=== PATIENT | male | born 1960 | race Caucasian/White ===

== ENCOUNTER → 2020-05-05 10:25 | Outpatient (BNVA) | payer OTHER, SELFPAY | PROVIDERS: Visit Provider Specialist | DX: G20 Parkinson's disease (principal); Z87.891 Personal history of nicotine dependence | CPT/HCPCS: 99204 ==

== ENCOUNTER → 2020-10-28 10:57 | Outpatient (BNVA) | payer OTHER, SELFPAY | PROVIDERS: Visit Provider Specialist | DX: G20 Parkinson's disease (principal); Z87.891 Personal history of nicotine dependence | CPT/HCPCS: 99215 ==

== ENCOUNTER → 2020-12-25 10:42 | Outpatient (BNVA) | payer OTHER, SELFPAY | PROVIDERS: Visit Provider Specialist | DX: G20 Parkinson's disease (principal); Z87.891 Personal history of nicotine dependence | CPT/HCPCS: 99214 ==

== ENCOUNTER → 2021-02-02 16:29 | Outpatient (BNVA) | payer OTHER, SELFPAY | PROVIDERS: Visit Provider Family Medicine | DX: L03.90 Cellulitis, unspecified (principal); S30.860A Insect bite (nonvenomous) of lower back and pelvis, initial encounter; W57.XXXA Bitten or stung by nonvenomous insect and other nonvenomous arthropods, initial encounter | CPT/HCPCS: 86618; 86666; 86757 ==

== ENCOUNTER 2021-08-31 09:05 | Day surgery (SDC) | payer OTHER, SELFPAY ==
[2021-08-28 15:12] VITALS: BMI 26.4
[2021-08-31] VITALS (11 sets, daily range): BP systolic 118–134; BP diastolic 55–78; PULSE 57–90; RESP 14–20; TEMP 36.2–36.7; O2SAT 96–100
[2021-08-31] MEDS: sodium chloride 0.9% 1,000 ML 30 ML IV (09:53)
[2021-08-31] MEDS: acetaminophen 1,000 MG/100 ML PIGGYBACK 400 MG IV (09:53)
--- NOTE | 2021-08-31 09:53 | W.PM.OPSUD ---
Surgery/Procedure H&P Update DATE OF PROCEDURE: August 31, 2021 DATE H&P PERFORMED: 08/27/21 H&P UPDATE INFORMATION: I have reviewed H&P completed within last 30 days, I have examined patient prior to procedure and No changes to prior documentation PREOP DIAGNOSIS: Right groin hernia PRIMARY INDICATION FOR PROCEDURE: The same PLANNED PROCEDURE: Operation Date: 08/31/21 11:10 Proposed Procedures p Lap possible open right inguinal hernia repair with mesh 11824/K40.90(Right) - Luis Chow MD
--- NOTE | 2021-08-31 10:15 | ANES.PREANE2 ---
Pre-Anesthetic Assessment Height/Weight: Height 1.8 m Weight 86.183 kg Temp Pulse Resp BP Pulse Ox 98.0 F 90 20 H 134/76 100 08/31/21 09:25 08/31/21 09:25 08/31/21 09:25 08/31/21 09:25 08/31/21 09:25 Preop Diagnosis: Right groin hernia Operation Date: 08/31/21 11:10 Proposed Procedures p Lap possible open right inguinal hernia repair with mesh 39734/K40.90(Right) - Luis Chow MD Familial anesthetic complications: None Was Beta Padmini taken within 24 hours: N/A Was Clonidine taken within 24 hours: N/A Last intake: Intake Last Liquid Date 08/31/21 Last Liquid Time 06:30 Last Solid Date 08/30/21 Last Solid Time 23:30 Social No alcohol and No tobacco Exam alert, oriented x 3, clear to auscultation bilaterally and regular rate & rhythm Airway Mallampati: Class II Dentition: full Pulmonary None reported CV/HEM None reported None reported Hepatic None reported GI None reported Metabolic None reported Musc/skel None reported Neuropsych None reported parkinson's disease Anesthetic Plan ASA status: 2 Anesthesia: General Medications/Allergies Home Medications Medication Instructions Recorded Confirmed Last Taken Type amino acids (Amino Acid) cap PO PRN 04/30/20 08/29/21 Unknown History multivitamin (Daily Multi-Vitamin) 1 tab PO DAILY 04/30/20 08/29/21 08/28/21 History carbidopa 25 mg-levodopa 250 mg See Rx Instructions .ROUTE 04/24/21 08/29/21 08/31/21 Rx tablet .COMPLEX #270 tab carbidopa ER 50 mg-levodopa 200 mg See Rx Instructions .ROUTE 04/24/21 08/29/21 08/30/21 Rx tablet,extended release .COMPLEX #90 tab Allergies Allergy/AdvReac Type Severity Reaction Status Date / Time formaldehyde Allergy hives Verified 08/29/21 10:04 Current Medications Generic Name Dose Route Start Last Admin Trade Name Freq PRN Reason Stop Dose Admin Sodium Chloride 1,000 mls @ 30 mls/hr 08/31/21 09:30 08/31/21 09:53 Sodium Chloride 0.9% IV 09/01/21 09:29 30 mls/hr .Q24H TEMITOPE Administration PFSH Anesthesia Medical History Parkinson disease Social History Smoking and tobacco status: former smoker Quit status (tobacco): has quit using tobacco Year quit tobacco: 1995 Alcohol intake: never Data Anesthesia Cardiac Studies: No Data to Display
--- NOTE | 2021-08-31 13:08 | PM.OP ---
Operative Report Date of procedure: August 31, 2021 Pre-op diagnosis: Preop Diagnosis Right groin hernia Post-op diagnosis: The same and lipoma of the cord Post-op findings: Right indirect inguinal hernia Procedure done: Laparoscopic right inguinal hernia repair with 3D mesh placed Laparoscopic excision of right cord lipoma Implants: Large 3D mesh Specimens removed/disposition: Lipoma of the cord Surgeon: Luis Chow MD Clinical Statistics Manager: Surgical techkristy Durant Circulating nurse Harriett Anesthesia: General ([employer] DIRECTOR OF NEUROLOGY Page) Estimated blood loss (mL): 20 IV fluids (mL): 800 Urine output (mL): 300 Procedure: Transabdominal preperitoneal (UBALDO) approach. Patient was identified in the holding area ,patient was transferred to the operating room where he was placed in supine position, with both arms were tucked, antibiotic was given with induction, endotracheal tube was placed per anesthesia, Silverio catheter was inserted by the circulating nurse and revealed clear urine, prep and drape of the abdomen was done under the usual sterile technique as well as the scrotal area. Time-out was done verifying the patient's name/date of /planned procedure destination after the procedure, all were in agreement. SCDs confirmed to be functioning, preoperative antibiotics administered per protocol, and beta rashawn protocol was confirmed. A vertical skin incision of 1.2 cm was made with 11 blade knife through the supra umbilicus , incision was carried down to the subcutaneous tissue and deepened to identify the anterior fascia, two stay sutures were applied to the fascia, and safe entrance to the abdominal cavity was achieved, a Bates trocar technique safe entry to the abdominal cavity was achieved verified by using 10 mm zero degree laparoscopy, switched to a 30 degrees scope,low flow followed by a higher flow of CO2 gas up to 15 mmHg. There was no evidence of injury to intra-abdominal structures from the port entry, attention was deviated to both groins, there was a large indirect hernia defect with herniation of peritoneum and preperitoneal fat was noted on the right side, two 5 mm ports were placed on the right and left lateral aspect of the abdomen slightly above the level of the umbilicus, under direct visualization,Exparel was injected at all trocar sites prior to incisions. The peritoneum above the level of the iliopubic tract was incised to the left of the midline and dissection was performed to create a preperitoneal space medial to lateral aspect up to anterior superior iliac spine on the right side. Dissection was continued onto the medial aspect and the right spermatic was identified, there was evidence of indirect inguinal hernia .the sac was dissected. As it applied medial to the right inferior epigastric vessels/ dissection was performed to clear the space lateral to the spermatic cord and dorsomedial to it, the hernia sac was reduced and retracted far back, so there was an evidence of lipoma of the cord that was excised and sent for permanent pathology. Hemostasis was secured and 5 mm surgical clips were applied. Then a large right 3-D mesh was rolled and placed into the abdominal cavity through the Bates port, after the mesh was introduced it was positioned to lie in the myopectineal orifice and the mesh was unrolled and this covered the entire my myope pectineal orifice. Intra-abdominal pressure was dropped to 12 mmHg to help placement of the mesh good position On the lateral aspect of the mesh extended up to the anterior superior iliac spine on the medial aspect the mesh crossed the midline onto the left side, then using absorbable tacks, placed above the iliopubic tract onto the rectus abdominis muscle on the medial aspect and also to the lateral abdominal wall superomedial to the sacroiliac spine, then the mesh was also anchored to the pubis and the Dean's ligament inferiorly. The peritoneal leaflets were then brought together to cover the mesh and isolated from the other viscera, extra tacks were used to secure the peritoneum in good position. Final look demonstrated good hemostasis and the mesh in good position A total of 20 mL Exparel 40 ml Normal saline 20 ml bupivacaine 0.25% were injected at the remaining of the tacks site and trocar sites as well Final look demonstrated good hemostasis.Then the fascia on the supra umbilical fascial defect was closed using #1 PDS sutures under direct visualization using fascial closure device Ralph Freedman.All ports were removed,then the abdomen was desufflated. All skin incisions were closed with 4-0 Monocryl subcuticular suture and Dermabond was applied. The patient tolerated the procedure well, Silverio catheter was taken out ,got extubated and was transferred to the recovery area in stable condition All counts of instruments, needles and sponges were completed I was present for the whole entire procedure
--- NOTE | 2021-08-31 13:38 | ANE.PACU2 ---
Inpatient post-anesthesia follow up: Airway intact: Yes Vital signs: Temperature 98.0 F Pulse Rate 90 Respiratory Rate 20 Blood Pressure 134/76 Pulse Oximetry 100 Oxygen Delivery Me thod Room Air Oxygen Flow Rate Fraction of Inspir ed Oxygen Hydration adequate: Yes Nausea and vomiting: No Pain level: 4 Mental status: Baseline
[2021-08-31] MEDS: fentaNYL 50 mcg/mL INJ 2mL IVP (13:45)
[2021-08-31] MEDS: HYDROcodone-acetaminophen 5-325 mg Tablet 1 TAB PO (14:32)
== END 2021-08-31 15:00 | disposition home or self-care (01) ==
PROVIDERS: PCP Family Medicine; Visit Provider Surgery
PROC: 0WQF4ZZ Repair Abdominal Wall, Percutaneous Endoscopic Approach (ICD-10-PCS; CPT 49650; principal; 2021-08-31 11:00)
DX: K40.91 Unilateral inguinal hernia, without obstruction or gangrene, recurrent (principal); D17.6 Benign lipomatous neoplasm of spermatic cord; G20 Parkinson's disease; Z87.891 Personal history of nicotine dependence
CPT/HCPCS: 49650; 51702; 88304; C1781; C9290; J0330; J0690; J1100; J2250; J2405; J2704; J2710; J3010; J3490; J7030

== ENCOUNTER → 2021-11-20 13:37 | Outpatient (BNVA) | payer OTHER, SELFPAY | PROVIDERS: PCP Family Medicine; Visit Provider Nurse Practitioner Family | DX: Z20.822 Contact with and (suspected) exposure to COVID-19 (principal) | CPT/HCPCS: 87426 ==

== ENCOUNTER → 2022-04-14 14:24 | Outpatient (BNVA) | payer OTHER, SELFPAY | PROVIDERS: PCP Family Medicine; Visit Provider Family Medicine | DX: M25.552 Pain in left hip (principal); Z23 Encounter for immunization | CPT/HCPCS: 73502 ==

== ENCOUNTER 2023-11-25 09:15 | Outpatient (CLI) | payer OTHER, SELFPAY ==
--- NOTE | 2023-11-25 09:17 | XR_ITS ---
WS: [id number] XR hip RT 2-3V wo/w pel* [id number] REASON FOR EXAM: M25.559 - Pain in unspecified hip FINDINGS: No fracture or focal bone lesion. Mild narrowing of the joint space with moderate subchondral sclerosis and osteophytosis of the acetab ulum. Mild osteophytosis of the femoral head. XR/XR hip RT 2-3V wo/w pel* [id number] IMPRESSION: Moderate osteoarthritis of the right hip.
--- NOTE | 2023-11-25 09:17 | XRR_ITS ---
PROCEDURE INFORMATION: Exam: XR Left Shoulder Exam date and time: 11/25/2023 9:25 AM Age: 63 years old Clinical indication: Shoulder; Left; pain TECHNIQUE: Imaging protocol: Radiologic exam of the left shoulder. Views: 2 or more views. COMPARISON: No relevant prior studies available. FINDINGS: Bones/joints: No fracture. No dislocation. Minimal degenerative change at the acromioclavicular and glenohumeral joints. The acromiohumeral interval is normal. Mild curvature of the upper thoracic spine convex to the left. Soft tissues: No acute soft tissue abnormality. XR/XR shoulder LT min 2V* [id number] IMPRESSION: No acute osseous abnormality.
--- NOTE | 2023-11-25 09:17 | XR_ITS ---
WS: [email or web address] XR lumbar spine 2-3V* [id number] REASON FOR EXAM: M25.559 - Pain in unspecified hip FINDINGS: Non-standing mild rotatory levoscoliosis. Non-standing mild straightening of the normal lordosis. No compression deformity or other vertebral body lesion. Moderate narrowing of the L1-L2, L2-L3, and L4-L5 disc spaces with endplate sclerosis and osteophytos is. There is a stepdown configuration of the lumbar spine in which the adjacent inferior lumbar vertebrae is displaced anteriorly (anterolisthesis) 2 to 3 mm as one proceeds from L1-S1, superior to inferior . Moderate degenerative arthropathy in the facet joints at L4-L5 and L5-S1. XR/XR lumbar spine 2-3V* [id number] IMPRESSION: Multilevel degenerative spondylosis as above.
== END 2023-11-25 09:16 | disposition home or self-care (01) ==
PROVIDERS: PCP Family Medicine; Visit Provider Family Medicine
DX: M48.061 Spinal stenosis, lumbar region without neurogenic claudication (principal); M47.896 Other spondylosis, lumbar region; M47.898 Other spondylosis, sacral and sacrococcygeal region; M25.78 Osteophyte, vertebrae; M16.11 Unilateral primary osteoarthritis, right hip; M25.559 Pain in unspecified hip
CPT/HCPCS: 72100; 73030; 73502

== ENCOUNTER 2024-01-19 14:02 | Outpatient (CLI) | payer MEDICARE, SELFPAY ==
--- NOTE | 2024-01-19 14:30 | MR_ITS ---
WS: [id number] MRI LEFT SHOULDER NONCONTRAST TECHNIQUE: Sagittal T2, coronal T1, T2 and proton density imaging. Axial gradient PDE imaging. CLINICAL INFORMATION: M25.512 - Pain in left shoulder COMPARISON: None. FINDINGS: Moderate degenerative arthritis AC joint. Mild narrowing of the subacromial space. Impingement of the distal supraspinatus. Tiny insertional tears infraspinatus and supraspinatus. Normal teres minor. Subscapularis tendon appears intact. Diffuse tendinopathy involving the intra-art icular biceps tendon with increased T2 signal abnormality. Suspected tiny partial tear at the intertu bercular junction. Biceps tendon appears intact in the bicipital groove. Moderate degenerative narrow ing of the glenohumeral articulation. Biceps labral anchor appears intact. Degenerative fraying of th e glenoid labrum. Normal bone marrow signal in the humerus. MR/MR shoulder LT wo con* [id number] IMPRESSION: 1. Moderate degenerative arthritis AC joint with mild narrowing of the subacro mial space. 2. Tiny insertional tears distal supraspinatus and infraspinatus. 3. Rotator cuff is otherwise intact. 4. Marked diffuse tendinopathy involving the intra-articular biceps tendon wit h increased T2 signal abnormality and diffuse thickening. Suspected superimpose d partial tear at the intertubercular junction. 5. Biceps tendon appears intact within the bicipital groove. 6. Moderate degenerative narrowing of the glenohumeral articulation.
== END 2024-01-19 14:03 | disposition home or self-care (01) ==
PROVIDERS: PCP Family Medicine; Visit Provider Family Medicine
DX: M19.012 Primary osteoarthritis, left shoulder (principal); S46.012A Strain of muscle(s) and tendon(s) of the rotator cuff of left shoulder, initial encounter; M75.92 Shoulder lesion, unspecified, left shoulder; X58.XXXA Exposure to other specified factors, initial encounter
CPT/HCPCS: 73221

== ENCOUNTER → 2024-02-22 13:47 | Outpatient (BNVA) | payer MEDICARE, SELFPAY | PROVIDERS: PCP Family Medicine; Visit Provider Specialist | DX: M25.812 Other specified joint disorders, left shoulder; M25.512 Pain in left shoulder; G89.29 Other chronic pain | CPT/HCPCS: 20610; 73030; 99204; J1100; J2795; J3301 ==

== ENCOUNTER → 2024-04-06 14:45 | Outpatient (BNVA) | payer MEDICARE, SELFPAY | PROVIDERS: PCP Family Medicine; Visit Provider Specialist | DX: G24.9 Dystonia, unspecified (principal); G20.B2 Parkinson's disease with dyskinesia, with fluctuations; F32.1 Major depressive disorder, single episode, moderate; Z77.098 Contact with and (suspected) exposure to other hazardous, chiefly nonmedicinal, chemicals | CPT/HCPCS: 64642; 99214; J0585 ==

== ENCOUNTER → 2024-05-02 14:46 | Outpatient (BNVA) | payer MEDICARE, SELFPAY | PROVIDERS: PCP Family Medicine; Visit Provider Podiatrist Foot & Ankle Surgery | DX: Q82.8 Other specified congenital malformations of skin (principal) | CPT/HCPCS: 17110; 99203 ==

== ENCOUNTER → 2024-05-28 13:38 | Outpatient (BNVA) | payer MEDICARE, SELFPAY | PROVIDERS: PCP Family Medicine; Visit Provider Specialist | DX: M19.012 Primary osteoarthritis, left shoulder (principal); M25.812 Other specified joint disorders, left shoulder | CPT/HCPCS: 20610; J1100; J2795; J3301 ==

== ENCOUNTER → 2024-07-06 14:33 | Outpatient (BNVA) | payer MEDICARE, SELFPAY | PROVIDERS: PCP Family Medicine; Visit Provider Specialist | DX: G24.9 Dystonia, unspecified (principal); G20.B2 Parkinson's disease with dyskinesia, with fluctuations; F32.1 Major depressive disorder, single episode, moderate; Z77.098 Contact with and (suspected) exposure to other hazardous, chiefly nonmedicinal, chemicals | CPT/HCPCS: 64642; 99214; J0585; J9999 ==

== ENCOUNTER → 2024-09-19 11:30 | Outpatient (BNVA) | payer MEDICARE, SELFPAY | PROVIDERS: PCP Family Medicine; Visit Provider Nurse Practitioner Family | DX: G20.B2 Parkinson's disease with dyskinesia, with fluctuations (principal); Z12.5 Encounter for screening for malignant neoplasm of prostate; Z13.6 Encounter for screening for cardiovascular disorders | CPT/HCPCS: 80053; 80061; 85025; G0103 ==

== ENCOUNTER → 2024-09-28 10:14 | Outpatient (BNVA) | payer MEDICARE, SELFPAY | PROVIDERS: PCP Family Medicine; Visit Provider Student in an Organized Health Care Education/Training Program | DX: Z12.11 Encounter for screening for malignant neoplasm of colon (principal) | CPT/HCPCS: 99024; 99204 ==

== ENCOUNTER → 2024-10-12 12:20 | Outpatient (BNVA) | payer MEDICARE, SELFPAY | PROVIDERS: PCP Family Medicine; Visit Provider Specialist | DX: G24.9 Dystonia, unspecified (principal) | CPT/HCPCS: 64642; 99213; J0585; J9999 ==

== ENCOUNTER 2024-11-16 05:00 | Outpatient (RCR) | payer MEDICARE, SELFPAY | END 2024-12-16 23:59 | disposition home or self-care (01) | LOC: GPS 05:00 | PROVIDERS: PCP Family Medicine; Visit Provider Specialist | DX: G20.B2 Parkinson's disease with dyskinesia, with fluctuations (principal); R26.81 Unsteadiness on feet | CPT/HCPCS: 97112; 97162 ==

== ENCOUNTER 2024-11-21 10:38 | Outpatient (CLI) | payer MEDICARE, SELFPAY ==
--- NOTE | 2024-11-21 11:00 | FL_ITS ---
WS: [email or web address] FL barium swallow modifd [id number] REASON FOR EXAM: R13.10 - Dysphagia, unspecified FLUOROSCOPY TIME: 2min [id number] # OF SPOT FILMS: 0 TECHNIQUE: Examination was supervised by the speech therapy department. Patient was examined in the sitting upright lateral projection. The swallowing of multiple consistencies of barium was monitored fluoroscopically and video recorded. FINDINGS: There is no aspiration or laryngeal vestibule penetration. With more solid consistencies there was vallecular and piriform sinus residuals which cleared with additional swallowing or liquid intake. There was no impedance to the transit of the barium tablet through the esophagus. FL/FL barium swallow modifd [id number] IMPRESSION: A detailed report of the swallowing will be rendered by the speech therapy depa rtment. No aspiration or laryngeal vestibule penetration of contrast. Vallecular and piriform sinus residuals. No impedance to the transit of barium tablet through the esophagus.
== END 2024-11-21 10:39 | disposition home or self-care (01) ==
LOC: RAD 10:41
PROVIDERS: PCP Family Medicine; Visit Provider Specialist
DX: R13.10 Dysphagia, unspecified (principal)
CPT/HCPCS: 74230; 92611

== ENCOUNTER → 2024-11-28 15:38 | Outpatient (BNVA) | payer MEDICARE, SELFPAY | PROVIDERS: PCP Family Medicine; Visit Provider Podiatrist Foot & Ankle Surgery | DX: L81.4 Other melanin hyperpigmentation (principal); D22.61 Melanocytic nevi of right upper limb, including shoulder; L82.0 Inflamed seborrheic keratosis; Z78.9 Other specified health status; L53.8 Other specified erythematous conditions; L29.89 Other pruritus; L57.0 Actinic keratosis; M79.672 Pain in left foot; M21.622 Bunionette of left foot; Q82.8 Other specified congenital malformations of skin | CPT/HCPCS: 17000; 17110; 73630; 99203; 99214 ==

== ENCOUNTER → 2024-11-30 09:18 | Outpatient (BNVA) | payer MEDICARE, SELFPAY | PROVIDERS: PCP Family Medicine; Visit Provider Specialist | DX: M19.012 Primary osteoarthritis, left shoulder (principal); M25.812 Other specified joint disorders, left shoulder | CPT/HCPCS: 20610; J1100; J2795; J3301; J9999 ==

== ENCOUNTER → 2024-12-03 13:56 | Outpatient (BNVA) | payer MEDICARE, SELFPAY | PROVIDERS: PCP Family Medicine; Visit Provider Specialist | DX: M70.61 Trochanteric bursitis, right hip (principal); M70.62 Trochanteric bursitis, left hip; G57.03 Lesion of sciatic nerve, bilateral lower limbs | CPT/HCPCS: 73523; 99214 ==

== ENCOUNTER 2024-12-17 06:30 | Outpatient (RCR) | payer MEDICARE, SELFPAY | END 2025-01-15 23:59 | disposition home or self-care (01) | LOC: GPS 06:30 | PROVIDERS: PCP Family Medicine; Visit Provider Specialist | DX: G20.B2 Parkinson's disease with dyskinesia, with fluctuations (principal); R13.10 Dysphagia, unspecified; R49.8 Other voice and resonance disorders; R26.81 Unsteadiness on feet | CPT/HCPCS: 92507; 92524; 92610; 97110; 97112; 97530 ==

== ENCOUNTER 2024-12-17 06:30 | Outpatient (RCR) | payer MEDICARE, SELFPAY | END 2025-01-15 23:59 | disposition home or self-care (01) | LOC: GPT 06:30 | PROVIDERS: PCP Family Medicine; Visit Provider Specialist | DX: M70.61 Trochanteric bursitis, right hip (principal); M70.62 Trochanteric bursitis, left hip; G57.03 Lesion of sciatic nerve, bilateral lower limbs | CPT/HCPCS: 97110; 97112; 97161 ==

== ENCOUNTER 2025-01-25 09:40 | Outpatient (RCR) | payer MEDICARE, SELFPAY | END 2025-02-01 09:23 | disposition home or self-care (01) | LOC: GPS 09:40 | PROVIDERS: PCP Family Medicine; Visit Provider Specialist | DX: G20.B2 Parkinson's disease with dyskinesia, with fluctuations (principal); R26.81 Unsteadiness on feet; R13.10 Dysphagia, unspecified; R49.8 Other voice and resonance disorders | CPT/HCPCS: 92507; 92526 ==

== ENCOUNTER 2025-01-25 10:31 | Outpatient (RCR) | payer MEDICARE, SELFPAY | END 2025-01-28 09:54 | disposition home or self-care (01) | LOC: GPT 10:31 | PROVIDERS: PCP Family Medicine; Visit Provider Specialist | DX: M70.61 Trochanteric bursitis, right hip (principal); M70.62 Trochanteric bursitis, left hip; G57.03 Lesion of sciatic nerve, bilateral lower limbs | CPT/HCPCS: 97110 ==

== ENCOUNTER → 2025-03-08 09:35 | Outpatient (BNVA) | payer MEDICARE, SELFPAY | PROVIDERS: PCP Family Medicine; Visit Provider Specialist | DX: M19.012 Primary osteoarthritis, left shoulder (principal) | CPT/HCPCS: 20610; J1100; J2795; J3301; J9999 ==